=== PATIENT | female | born 2005 | race Caucasian/White ===

== ENCOUNTER 2025-02-03 14:13 | Emergency (ER) | payer MEDICAID, OTHER ==
[~2025-02-03] VITALS: Ht 175.3 cm; Wt 92.6 kg
[2025-02-03 14:16] VITALS: BP 115/77; PULSE 74; RESP 16; TEMP 98; O2SAT 97
[2025-02-03] MEDS ORDERED: CYCL-839 PO (15:25)
[2025-02-03] MEDS ORDERED: SERT-206 PO (15:25)
[2025-02-03] MEDS ORDERED: MECL12.586 PO (15:25)
[2025-02-03] MEDS ORDERED: TRAZ-228 PO (15:25)
[2025-02-03] MEDS ORDERED: SENN1CAP4 PO (15:25)
--- NOTE | 2025-02-03 15:25 | ED.PDOC ---
GI ASSESSMENT HPI Comments 19-year-old female presented to the emergency department because of constipation and also vomiting duration five days Chief Complaint: Constipation Time Seen by MD: 14:36 Reviewed Notes: Nurses Notes, Medications, Allergies Allergies: Coded Allergies: Latex (Verified Allergy, Unknown, 02/03/25) Penicillins (Verified Allergy, Unknown, 02/03/25) Information Source: Patient Mode of Arrival: Ambulatory Timing: Days Duration: Since onset Quality: Cramping Severity: Mild Recent: Ingestion of ETOH, Laxative Use Recent Hx of: Constipation Pain Location: Diffuse Modifying Factors: Nothing Associated sign and symptoms: Vomiting, Abdominal Pain Past Medical History PAST MEDICAL HISTORY: Depression, Denies Surgical History: Denies all surgeries SPEECH LANGUAGE ASSISTANT History: No Pertinent SPEECH LANGUAGE ASSISTANT History Family History Family History: Reviewed,noncontributory to illness, No family hx of Cancer, No family hx of DM, No family hx of Heart daniel, No family hx of HTN, No family hx ofKidney daniel, No family hx of Liver daniel, No family hx of Lung daniel, No family hx of Stroke Social History Smoker: Non-Smoker Alcohol: Occasionally Drugs: Marijuana Lives In: Home Constitutional: denies: chills, diaphoresis, fatigue, fever, malaise, sweats, weakness, others EENTM: denies: blurred vision, double vision, ear bleeding, ear discharge, ear drainage, ear pain, ear ringing, eye pain, eye redness, hearing loss, mouth pain, mouth swelling, nasal discharge, nose bleeding, nose congestion, nose pain, photophobia, tearing, throat pain, throat swelling, voice changes, others Respiratory: denies: cough, hemoptysis, orthopnea, SOB at rest, shortness of breath, SOB with excertion, stridor, wheezing, others Cardiovascular: denies: chest pain, dizzy spells, diaphoresis, Dyspnea on exer tion, edema, irregular heart beat, left arm pain, lightheadedness, palpitations, PND, syncope, others Gastrointestinal: reports: abdominal pain, constipated, nausea, vomiting; denies: abdomen distended, blood streaked bowels, diarrhea, dysphagia, difficulty swallowing, hematemesis, melena, poor appetite, poor fluid intake, rectal bleeding, rectal pain, others Genitourinary: denies: abnormal vagina bleeding, burning, dyspareunia, dysuria, flank pain, frequency, hematuria, incontinence, pain, , vagina discharge, urgency, others Neurological: denies: dizziness, fainting, headache, left sided numbness, left sided weakness, numbness, paresthesia, pre-existing deficit, right sided numbness, right sided weakness, seizure, speech problems, tingling, tremors, weakness, others Musculoskeletal: denies: back pain, gout, joint pain, joint swelling, muscle pain, muscle stiffness, neck pain, others Integumetry: denies: bruises, change in color, change in hair/nails, dryness, laceration, lesions, lumps, rash, wounds, others Allergic/Immunocompromised: denies: Difficulty Healing, Frequent Infections, Hives, Itching, others Hematologic/Lymphatic: denies: anemia, blood clots, easy bleeding, easy bruising, swollen glands, others Endocrine: denies: excessive hunger, excessive sweating, excessive thirst, excessive urination, flushing, intolerance to cold, intolerance to heat, unexplained weight gain, unexplained weight loss, others Psychiatric: reports: bipolar disorder All Other Systems: Reviewed and Negative Physical Exam General Appearance: Mild Distress, Obese HEENT: Normal ENT Inspection, Pharynx Normal, TMs Normal Neck: Full Range of Motion, Non-Tender, Normal, Normal Inspection Respiratory: Chest Non-Tender, Lungs Clear, No Accessory Muscle Use, No Respiratory Distress, Normal Breath Sounds Cardiovascular: No Edema, No JVD, No Murmur, No Gallop, Normal Peripheral Pulses, Regular Rate/Rhythm Breast Exam: Deferred Gastrointestinal: No Organomegaly, Non Tender, No Pulsatile Mass, Normal Bowel Sounds, Soft Genitalia: Deferred Pelvic: Deferred Rectal: Deferred Extremities: No calf tenderness, Normal capillary refill, Normal inspection, Normal range of motion, Non-tender, No pedal edema Neurologic: Alert, elect equip maint eng II-XII nml as Tested, No Motor Deficits, Normal Affect, Normal Mood, No Sensory Deficits Cerebellar Function: Normal Reflexes: Normal Skin: Dry, Normal Color, Warm Peripheral Pulses: 1+ carotid (R), 1+ carotid (L) Lymphatic: No Adenopathy Was a procedure done? Was a procedure done?: No GI differential Dx Differential Diagnosis: Constipation X-Ray, Labs, Meds, VS Vital Signs Date Time Temp Pulse Resp B/P (MAP) Pulse Ox O2 Delivery O2 Flow Rate FiO2 02/03/25 14:16 98.0 74 16 115/77 97 98.0 X-Ray, Labs, Meds, VS Comment Course in the emergency department eventful patient had is constipated for five days she took one time laxative which will take few days to work Patient is also bipolar and need refill also medications otherwise patient is fine Time of 1ST Reevaluation: 15:16 Reevaluation 1ST: Unchanged Consultation: PCP Patient Education/Counseling: Diagnosis, Treatment, Prognosis, Need For Follow Up Family Education/Counseling: Diagnosis, Treatment, Prognosis, Need For Follow Up, No Family Present SEPSIS Sepsis Screen Date sepsis recognized/suspect: Feb 03, 2025 Time Sepsis recognized/suspect: 1423 Recent Procedure: No On Antibiotic Therapy: No Respiratory Rate >20: No Heart Rate >90: No Temp<36 C (96.8 F) or >38.3 C: No SBP <90 or MAP <65 mmHG: No New Acute Mental Status Change: No Is the patient on CPAP, BIPAP,: No Vital Signs Date Time Temp Pulse Resp B/P (MAP) Pulse Ox O2 Delivery O2 Flow Rate FiO2 02/03/25 14:16 98.0 74 16 115/77 97 98.0 Departure 1 Departure Time of Disposition: 15:16 Impression: Primary Impression: Constipation by delayed colonic transit Additional Impressions: Bipolar disorder Qualified Codes: F31.31 - Bipolar disorder, current episode depressed, mild Bursitis of right shoulder Disposition: 01 HOME / SELF CARE / HOMELESS Condition: Fair Additional Instructions: You need to walk be active and push fluids e-Prescriptions Meclizine Hcl (Meclizine Hcl) 12.5 Mg Tab 2 TAB PO TID for 15 Days, #90 TAB 3 Refills Prov: CHAVO QUICK MD 02/03/25 Trazodone Hcl (Trazodone Hcl) 100 Mg Tab 0.5 TAB PO QPM for 20 Days, #10 TAB 1 Refill Prov: CHAVO QUICK MD 02/03/25 Sertraline Hcl (Sertraline Hcl) 50 Mg Tab 1 TAB PO DAILY for 30 Days, #30 TAB 5 Refills Prov: CHAVO QUICK MD 02/03/25 Sennosides-Docusate Sodium (Senna Plus 50-8.6 mg) 1 Cap Cap 2 CAP PO qhs for 10 Days, #20 CAP Prov: CHAVO QUICK MD 02/03/25 Cyclobenzaprine Hcl (Cyclobenzaprine Hcl) 10 Mg Tab 10 MG PO BID for 10 Days, #20 TAB Prov: CHAVO QUICK MD 02/03/25 Discharged With: Self Critical Care Note Critical Care Time?: No Stability Stability form required: No Heart Score Heart Score: Heart Score Response (Comments) Value History N/A 0 EKG N/A 0 Age <45 0 Risk Factors No known risk factors 0 Troponin N/A 0 Total 0 CHAVO QUICK MD Feb 03, 2025 15:25
== END 2025-02-03 15:58 | disposition home or self-care (01) ==
LOC: ER 14:13
DX: K59.01 Slow transit constipation (principal); F31.31 Bipolar disorder, current episode depressed, mild; M75.51 Bursitis of right shoulder; Z88.0 Allergy status to penicillin; Z91.040 Latex allergy status